=== PATIENT | male | born 1960 | race Caucasian/White ===

== ENCOUNTER 2020-02-12 18:58 | Emergency (ER) | payer MEDICAID ==
[~2020-02-12] VITALS: Ht 172.7 cm; Wt 77.6 kg
[2020-02-12] MEDS ORDERED: BISA10SU11 RC (19:14)
[2020-02-12] MEDS ORDERED: VENL37.55 PO (19:14)
[2020-02-12] MEDS ORDERED: ACET-2605 PO (19:14)
[2020-02-12] MEDS ORDERED: ASCO-352 PO (19:14)
[2020-02-12] MEDS ORDERED: RISP0.2515 PO (19:14)
[2020-02-12] MEDS ORDERED: CHOL100040 PO (19:14)
[2020-02-12] MEDS ORDERED: AMIN30LI2 PO (19:14)
[2020-02-12] MEDS ORDERED: GLIP5TAB13 PO (19:14)
[2020-02-12] MEDS ORDERED: INSU100I26 SQ (19:14)
[2020-02-12] MEDS ORDERED: LACT1CAP69 GT (19:14)
[2020-02-12] MEDS ORDERED: NA P133E RC (19:14)
[2020-02-12] MEDS ORDERED: PIOG30TA10 PO (19:14)
[2020-02-12] MEDS ORDERED: PSYL3.4P6 PO (19:14)
[2020-02-12] MEDS ORDERED: ACET-868 PO (19:14)
[2020-02-12] MEDS ORDERED: BENZ0.5T43 PO (19:14)
[2020-02-12] MEDS ORDERED: MAGN400O6 PO (19:14)
[2020-02-12] MEDS ORDERED: ATOR40TA PO (19:14)
[2020-02-12] MEDS ORDERED: INSU100V39 SQ ×2 (19:14)
[2020-02-12] MEDS ORDERED: ASPI-1169 PO (19:14)
[2020-02-12] MEDS ORDERED: METF-440 PO (19:14)
[2020-02-12] MEDS ORDERED: CLON0.5T4 PO (19:14)
[2020-02-12] MEDS ORDERED: OMEG1CAP PO (19:14)
[2020-02-12] MEDS ORDERED: MULT-1018 PO (19:14)
[2020-02-12 19:19] LABS: BASOPHILS # (AUTO) 0.1 /CMM (0.0-0.2); EOSINOPHILS % (AUTO) 0.2 % (0.0-6.0); HEMATOCRIT 40 % (39-51); HEMOGLOBIN 13.2 g/dL (13.5-17.5); LYMPHOCYTES # (AUTO) 2.1 /CMM (0.8-4.8); LYMPHOCYTES % (AUTO) 16.4 % (20.0-44.0); MEAN CORPUSCULAR HGB CONC 33 g/dl (31.0-36.0); MEAN CORPUSCULAR VOLUME 85 fL (80-96); MONOCYTES # (AUTO) 0.8 /CMM (0.1-1.30); MONOCYTES % (AUTO) 5.9 % (2.0-12.0); NEUTROPHILS # (AUTO) 9.9 /CMM (1.8-8.9); NEUTROPHILS % (AUTO) 76.5 % (43.0-81.0); PLATELET COUNT (AUTO) 365 /CMM (150-450); RED BLOOD CELL COUNT(AUTO) 4.71 MIL/uL (4.5-6.0)
[2020-02-12 19:26] LABS: CALCIUM, SERUM 9.4 mg/dL (8.5-10.1); CREATININE 1.2 mg/dL (0.6-1.3); POTASSIUM 3.8 mmol/L (3.5-5.1)
--- NOTE | 2020-02-12 20:18 | NUR ---
REPORT CALLED TO [facility] STAFF
--- NOTE | 2020-02-12 21:05 | NUR ---
SPOKE TO [facility] ETA 75-90MIN.
[2020-02-12] MEDS ORDERED: METOPROLOL TARTRATE 25 MG TABLET PO ONE (22:30)
[2020-02-12] MEDS ORDERED: CLONIDINE HCL 0.1 MG TABLET PO ONE (22:30)
[2020-02-12] MEDS ORDERED: CLONIDINE HCL 0.1 MG TABLET ONE (22:32)
[2020-02-12] MEDS ORDERED: METOPROLOL TARTRATE 50 MG TABLET ONE (22:33)
[2020-02-12 23:45] VITALS: BP 162/89
== END 2020-02-12 23:45 | disposition home or self-care (01) ==
LOC: ER 19:00
DX: S09.8XXA Other specified injuries of head, initial encounter (principal); R00.0 Tachycardia, unspecified; E11.9 Type 2 diabetes mellitus without complications; Z88.0 Allergy status to penicillin; Z79.4 Long term (current) use of insulin; Z79.82 Long term (current) use of aspirin; Z79.899 Other long term (current) drug therapy; W18.09XA Striking against other object with subsequent fall, initial encounter; Y93.89 Activity, other specified; Y92.89 Other specified places as the place of occurrence of the external cause; Y99.8 Other external cause status
CPT/HCPCS: 36415; 70450-TC; 80048-TC; 85025-TC